=== PATIENT | female | born 1950 | race Caucasian/White ===

== ENCOUNTER 2021-06-26 12:14 | Outpatient (CLI) | payer MEDICARE, OTHER, SELFPAY ==
--- NOTE | 2021-06-26 12:25 | CT_ITS ---
WS: [id number] CT ABDOMEN AND PELVIS NONCONTRAST HISTORY: LLQ PAIN TECHNIQUE: Imaging performed through the abdomen and pelvis. Coronal and sagittal reformats are submi tted. All CT scans at [facility] use at least one of these dose optimization techniques: auto mated exposure control; mA and/or kV adjustment per patient size (includes targeted exams where dose is matched to clinical indication); or iterative reconstruction. DLP: 873.95 mGy.cm COMPARISON: None available. Lower thorax: Lung bases are clear. Visualized heart is normal. No hiatal hernia. Liver: Normal size liver. No mass or bile duct dilatation. Gallbladder: Prior cholecystectomy. No bile duct dilatation. Pancreas: Normal size and attenuation. Normal pancreatic duct. No pancreatitis or mass. Spleen: Normal spleen with coarse calcification at the hilum. Calcification is probably related to th e distal splenic artery. Adrenal glands: Normal. No mass. Right kidney: No renal obstruction. Renal calcifications are nonobstructing. Focal cortical thinning in the lower pole. Left kidney: Normal size kidney. Central nonobstructing calcification with focal scarring. There is a larger calcification in the central renal pelvis measuring 11 x 8 mm. There is very mild dilatation of the proximal renal pelvis and thickening of the uroepithelium suggesting a chronic inflammatory pr ocess related to the calcification. The LEFT ureter is very slightly dilated but there is no calcific ation within the ureter. Aorta: Mild atherosclerosis abdominal aorta with no aneurysm. No free fluid, intraperitoneal air or significant lymphadenopathy. GI tract: The appendix is normal. Good distention of the stomach with oral contrast. No small bowel o bstruction. There is mild diffuse fecal retention and constipation. Numerous diverticula are present in the sigmoid colon. No evidence for acute diverticulitis. Mild narrowing of the lumen related to ch ronic diverticulosis. Abdominal wall: Numerous surgical sutures over the abdominal wall probably from a prior hernia repair . Pelvis: No free fluid or adenopathy. Normally distended urinary bladder. No intraluminal filling defe ct. Osseous structures: Unremarkable. CT/CT abdomen pelvis wo con [id number] IMPRESSION: 1. Long segment sigmoid diverticulosis. No acute diverticulitis. Innumerable d iverticula are present. Mild narrowing of the sigmoid lumen. 2. Calcification LEFT renal pelvis measures 11 x 8 mm. Although no obstruction there are changes of mild inflammation involving the uroepithelium of the pelv is. This large calcification may be mobile within the pelvis causing intermitte nt obstruction. 3. Prior cholecystectomy. 4. Normal appendix.
[2021-06-26] MEDS: barium sulfate 450 mL Oral Susp PO (12:53)
== END 2021-06-26 12:15 | disposition home or self-care (01) ==
LOC: RAD 12:15
PROVIDERS: Family Provider Nurse Practitioner Family; PCP Nurse Practitioner Family; Visit Provider Surgery
DX: K57.30 Diverticulosis of large intestine without perforation or abscess without bleeding (principal); Z90.49 Acquired absence of other specified parts of digestive tract
CPT/HCPCS: 74176

== ENCOUNTER → 2021-06-30 10:20 | Outpatient (BNVA) | payer MEDICARE, OTHER, SELFPAY | PROVIDERS: Family Provider Nurse Practitioner Family; PCP Nurse Practitioner Family; Visit Provider Surgery | DX: K57.90 Diverticulosis of intestine, part unspecified, without perforation or abscess without bleeding (principal); R10.9 Unspecified abdominal pain | CPT/HCPCS: 99214 ==